=== PATIENT | male | born 1980 | race Caucasian/White ===

== ENCOUNTER 2017-11-17 10:00 | Emergency (ER) | payer MEDICAID ==
--- NOTE | 2017-11-17 10:59 | UC ---
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 He now has pain and swelling on the ulnar side of his right hand. - History Of Current Complaint Chief Complaint: UCUpperExtremity Stated Complaint: HAND INJURY Time Seen by Provider: 11/17/17 10:25 Hx Obtained From: Patient Onset/Duration: Sudden Onset, Lasting Days, Still Present Severity Initially: Moderate Severity Currently: Moderate Pain Intensity: 4 Pain Scale Used: 0-10 Numeric Character Of Pain: Sharp Aggravating Factor(s): Movement Alleviating Factor(s): Rest, Ice Associated Signs And Symptoms: Positive: Swelling. Negative: Numbness/Tingling Related History: Dominant Hand Right - Allergies/Home Medications Allergies/Adverse Reactions: Allergies Allergy/AdvReac Type Severity Reaction Status Date / Time cat dander Allergy Intermediate Congestion Verified 11/17/17 10:17 mold Allergy Congestion Verified 11/17/17 10:17 dust Allergy Congestion Uncoded 11/17/17 10:17 PMH/Surg Hx/FS Hx/Imm Hx Psychological History: Schizophrenia - Surgical History Surgical History: None Surgery Procedure, Year, and Place: denies - Family History Known Family History: Positive: Hypertension - Social History Alcohol Use: Occasionally Substance Use Type: Marijuana Substance Use Comment - Amount & Last Used: "I smoke as much as possible" Smoking Status (MU): Heavy Every Day Tobacco Smoker Type: Cigarettes Length of Time of Smoking/Using Tobacco: 27 yrs Have You Smoked in the Last Year: Yes - Immunization History Most Recent Influenza Vaccination: unsure Most Recent Tetanus Shot: unsure Most Recent Pneumonia Vaccination: unsure Review of Systems Constitutional: Negative Skin: Negative Respiratory: Negative Cardiovascular: Negative Gastrointestinal: Negative Musculoskeletal: Arthralgia, Decreased ROM, Edema All Other Systems Reviewed And Are Negative: Yes Physical Exam Triage Information Reviewed: Yes Appearance: Well-Appearing, No Pain Distress, Well-Nourished Vital Signs: Initial Vital Signs Temp 98.6 F 11/17/17 10:08 Pulse 79 11/17/17 10:08 Resp 18 11/17/17 10:08 BP 151/88 11/17/17 10:08 Pulse Ox 97 11/17/17 10:08 Vital Signs Reviewed: Yes Eyes: Positive: Conjunctiva Clear ENT: Positive: Hearing grossly normal Neck: Positive: Supple Respiratory: Positive: No respiratory distress, No accessory muscle use Cardiovascular: Positive: Pulses Normal Abdomen Description: Positive: Soft Musculoskeletal: Positive: ROM Limited @ - RIGHT HAND FLEXION AND EXTENSION, Edema @ - RIGHT HAND, Other: - TTP RIGHT HAND 5TH METACARPAL Neurological: Positive: Alert Psychological: Positive: Age Appropriate Behavior Skin: Negative: rashes Diagnostics - Radiology RIGHT HAND XRAY Xray Interpretation: Positive (See Comments) - OBLIQUE, COMMINUTED, DISPLACED, INTRA-ARTICULAR FRACTURE BASE OF THE FIFTH METACARPAL. Radiology Interpretation Completed By: Radiologist Hand/Wrist Course/Dx - Course Course Of Treatment: I spoke with Dr. Torres from orthopedics today. Sugar tong splint and sling applied. Ibuprofen for discomfort. Hydrocodone/APAP for breakthrough pain. Patient advised that hydrocodone in conjunction with haloperidol can increase risk for [employer] depression and respiratory depression. Patient has taken hydrocodone in the past and tolerated it well. He will call ortho today and set up an appointment for evaluation next week. - Differential Dx/Diagnosis Provider Diagnoses: OBLIQUE, COMMINUTED, DISPLACED, INTRA-ARTICULAR FRACTURE BASE OF THE RIGHT FIFTH. METACARPAL. - Physician Notifications Discussed Patient Care With: Cosme Torres Time Discussed With Above Provider: 11:30 Instructed by Provider To: Have Pt Call For Appt. Discharge - Sign-Out/Discharge Documenting (check all that apply): Discharge - Discharge Plan Condition: Stable Disposition: HOME Prescriptions: HYDROcodone/ACETAMIN 5-325 MG* [[place] 5-325 TAB*] 1 tab PO Q6H PRN #15 tab MDD 4 PRN Reason: Pain Patient Education Materials: Hand Fracture (ED) Referrals: Cosme Torres MD [Medical Doctor] - 5 Days Tim Avendaño MD [Primary Care Provider] - If Needed Additional Instructions: Your x-ray today showed an oblique, comminuted, displaced, intra-articular fracture of the base of the fifth metacarpal. Call ortho today for a follow-up appointment next week. Keep the splint on until seen by Ortho. Keep your arm elevated. Ice it several times daily. Ibuprofen as needed for discomfort. Use the hydrocodone sparingly for breakthrough pain. Be aware that narcotics in conjunction with haloperidol can increase your risk of sedation and respiratory compromise. - Billing Disposition and Condition Condition: STABLE Disposition: HOME
--- NOTE | 2017-11-17 11:02 | RAD ---
INDICATION: Right hand injury. TECHNIQUE: 4 views of the right hand were obtained. FINDINGS: There is soft tissue swelling present adjacent to the posterior medial aspect of the fourth and fifth metacarpal bones. There is an oblique comminuted intra-articular fracture at the base of the fifth metacarpal. There is slight distraction of fracture fragments. IMPRESSION: OBLIQUE, COMMINUTED, DISPLACED, INTRA-ARTICULAR FRACTURE BASE OF THE FIFTH METACARPAL.
[2017-11-17] MEDS ORDERED: Ibuprofen TAB* 600 MG PO ONE (11:11)
[2017-11-17 13:22] VITALS: BP 146/88
== END 2017-11-17 12:55 | disposition home or self-care (01) ==
LOC: UCEAST 10:00
DX: S62.306A Unspecified fracture of fifth metacarpal bone, right hand, initial encounter for closed fracture (principal); W22.09XA Striking against other stationary object, initial encounter; Y93.H3 Activity, building and construction; Y92.9 Unspecified place or not applicable; Y99.0 Civilian activity done for income or pay; F20.9 Schizophrenia, unspecified; F17.210 Nicotine dependence, cigarettes, uncomplicated
CPT/HCPCS: 99213; A9270-GY; G0463

== ENCOUNTER 2020-01-09 00:07 | Inpatient (IN) ==
[2020-01-09 00:57] LABS: ABS Basophils 0.1 10^3/ul (0-0.2); ABS Eosinophils 0.2 10^3/ul (0-0.6); ABS Lymphocytes 2.3 10^3/ul (1.0-4.8); ABS Monocytes 0.7 10^3/ul (0-0.8); Eosinophil % 1.7 %; Hematocrit 45 % (42-52); Hemoglobin 16.5 g/dL (14.0-18.0); Lymphocyte % 21.1 %; Mean Corpuscular HGB Conc 36 g/dL (31-36); Mean Corpuscular Hemoglobin 34 pg (27-31); Mean Corpuscular Volume 93 fL (80-94); Mean Platelet Volume 8.8 fL (7.4-10.4); Platelet Count 146 10^3/uL (150-450); Red Blood Count 4.86 10^6 /uL (4.18-5.48); Red Cell Distribution Width 14 % (10-15); White Blood Count 10.8 10^3/uL (3.5-10.8)
[2020-01-09 00:59] LABS: Urine Appearance Cloudy; Urine Bilirubin Negative (Negative); Urine Blood Negative (Negative); Urine Color Yellow; Urine Glucose Negative (Negative); Urine Ketones Negative (Negative); Urine Nitrite Negative (Negative); Urine Protein Negative (Negative); Urine Specific Gravity 1.019 (1.010-1.030); Urine Urobilinogen Negative (Negative)
[2020-01-09 01:12] LABS: ALT 13 U/L (7-52); Albumin 4.1 g/dL (3.2-5.2); Albumin/Globulin Ratio 1.4 (1-3); Alkaline Phosphatase 51 U/L (34-104); BUN/Creatinine Ratio 16.3 (8-20); Blood Urea Nitrogen 16 mg/dL (6-24); CO2 Carbon Dioxide 28 mmol/L (22-32); Calcium 9.5 mg/dL (8.6-10.3); Chloride 102 mmol/L (101-111); EGFR African American 103.6 (>60); EGFR Non-African American 85.6 (>60); Glucose 164 mg/dL (70-100); Sodium 137 mmol/L (135-145); Total Protein 7.1 g/dL (6.4-8.9)
[2020-01-09 01:14] LABS: Urine Benzodiazepine Screen None Detected (None Detect); Urine Opiates Screen None Detected (None Detect)
[2020-01-09 01:19] LABS: Acetaminophen < 15 mcg/mL; Alcohol, S < 10 mg/dL (<10); Salicylate < 2.50 mg/dL (<30)
[2020-01-09 01:33] LABS: TSH (Thyroid Stimulating Horm) 0.77 mcIU/mL (0.34-5.60)
[2020-01-09 01:45] LABS: Anion Gap 7 mmol/L (2-11); Potassium 4.1 mmol/L (3.5-5.0)
[2020-01-09 01:53] LABS: AST 16 U/L (13-39)
[2020-01-09] MEDS ORDERED: Nicotine GUM 2MG FRUIT FLAVOR PO ONE (03:08)
[2020-01-09] MEDS ORDERED: Al Hydrox/Mg Hydrox/Simet LIQ 30 ML UDC PO PRN (03:28)
[2020-01-09] MEDS: Nicotine GUM 2MG FRUIT FLAVOR PO PRN ×4 (06:16→11:54)
[2020-01-09] MEDS: Vitamin THERAPEUTIC TAB PO SCH (08:34)
[2020-01-09] MEDS: Nicotine PATCH 21 MG/24 HR PATCH TRANSDERM SCH ×2 (08:35→12:13)
[2020-01-09] MEDS ORDERED: AMOXICILLIN 250 MG PO ONE (10:51)
[2020-01-09] MEDS: LORazepam 1 mg TAB (*) PO PRN (13:27)
[2020-01-09] MEDS: Nicotine GUM 4MG FRUIT FLAVOR PO PRN (16:33)
[2020-01-10] MEDS ORDERED: Haloperidol 5 mg/ml SDV IV/IM 5 MG/ML AMP IM ONE (07:40)
[2020-01-10] MEDS ORDERED: Lorazepam PYXIS KEY PRN (07:41)
[2020-01-10] MEDS ORDERED: LORazepam 2 mg VIAL 1 ml IM ONE (07:41)
[2020-01-10] MEDS ORDERED: LORazepam 2 mg VIAL 1 ml ONE (07:41)
[2020-01-10] MEDS ORDERED: Haloperidol 5 mg/ml SDV IV/IM 5 MG/ML AMP ONE (07:41)
[2020-01-10] MEDS: Nicotine GUM 4MG FRUIT FLAVOR PO PRN ×4 (07:50→21:41)
[2020-01-10] MEDS: LORazepam 1 mg TAB (*) PO PRN ×2 (07:50→13:37)
[2020-01-10] MEDS: Vitamin THERAPEUTIC TAB PO SCH (08:55)
[2020-01-10] MEDS: Nicotine PATCH 21 MG/24 HR PATCH TRANSDERM SCH (08:56)
[2020-01-10] MEDS ORDERED: Benzocaine/Menthol LOZ MT PRN (11:18)
[2020-01-10] MEDS ORDERED: chlorproMAZINE 25 MG/ML 2 ML (50 MG) IM ONE (13:26)
[2020-01-10] MEDS ORDERED: chlorproMAZINE 25 MG/ML 2 ML (50 MG) ONE (13:26)
[2020-01-11] MEDS: Nicotine GUM 4MG FRUIT FLAVOR PO PRN ×3 (01:30→18:30)
[2020-01-11] MEDS: Nicotine PATCH 21 MG/24 HR PATCH TRANSDERM SCH (08:28)
[2020-01-11] MEDS: Vitamin THERAPEUTIC TAB PO SCH (08:29)
[2020-01-11] MEDS: LORazepam 1 mg TAB (*) PO PRN (18:29)
[2020-01-11] MEDS: OLANzapine 5 mg TAB*ODT PO PRN (18:30)
[2020-01-11] MEDS ORDERED: diPHENhydraMINE IV 50 MG/ML 1 ml VIAL (BENADRYL) IM ONE (19:00)
[2020-01-12] MEDS: Nicotine PATCH 21 MG/24 HR PATCH TRANSDERM SCH (07:41)
[2020-01-12] MEDS: Vitamin THERAPEUTIC TAB PO SCH (07:41)
[2020-01-12 07:55] LABS: HDL Cholesterol 58.3 mg/dL
[2020-01-12] MEDS: Nicotine GUM 4MG FRUIT FLAVOR PO PRN (09:20)
[2020-01-12] MEDS ORDERED: LORazepam 1 mg TAB (*) PO PRN (12:30)
[2020-01-13] MEDS: Nicotine GUM 4MG FRUIT FLAVOR PO PRN ×3 (05:26→20:40)
[2020-01-13] MEDS: Vitamin THERAPEUTIC TAB PO SCH (08:27)
[2020-01-13] MEDS: Nicotine PATCH 21 MG/24 HR PATCH TRANSDERM SCH (08:27)
[2020-01-13] MEDS: OLANzapine 5 mg TAB*ODT PO PRN (16:29)
[2020-01-14] MEDS: Nicotine GUM 4MG FRUIT FLAVOR PO PRN ×2 (07:09→19:41)
[2020-01-14] MEDS: Vitamin THERAPEUTIC TAB PO SCH (08:21)
[2020-01-14] MEDS: Nicotine PATCH 21 MG/24 HR PATCH TRANSDERM SCH (08:22)
[2020-01-14] MEDS: LORazepam 1 mg TAB (*) PO PRN ×2 (09:00→19:40)
[2020-01-14] MEDS ORDERED: LORazepam 1 mg TAB (*) PO ONE (09:01)
[2020-01-15] MEDS: CMCS:Saliva Substitute (NF) 1 SPRAY BTL MT PRN (05:31)
[2020-01-15] MEDS: Nicotine PATCH 21 MG/24 HR PATCH TRANSDERM SCH (07:46)
[2020-01-15] MEDS: Nicotine GUM 4MG FRUIT FLAVOR PO PRN ×3 (07:46→21:27)
[2020-01-15] MEDS: Vitamin THERAPEUTIC TAB PO SCH (08:34)
[2020-01-15] MEDS: CMCS: OMEGA-3 FATTY ACID 1000 mg(NF) PO SCH ×2 (15:25→21:25)
[2020-01-15] MEDS: LORazepam 1 mg TAB (*) PO PRN (19:17)
[2020-01-16] MEDS: Vitamin THERAPEUTIC TAB PO SCH (07:37)
[2020-01-16] MEDS: Nicotine PATCH 21 MG/24 HR PATCH TRANSDERM SCH (07:39)
[2020-01-16] MEDS: Nicotine GUM 4MG FRUIT FLAVOR PO PRN ×3 (07:40→20:22)
[2020-01-16] MEDS: CMCS: OMEGA-3 FATTY ACID 1000 mg(NF) PO SCH ×2 (10:21→20:21)
[2020-01-17] MEDS: Nicotine GUM 4MG FRUIT FLAVOR PO PRN ×3 (07:32→15:52)
[2020-01-17] MEDS: Nicotine PATCH 21 MG/24 HR PATCH TRANSDERM SCH (08:30)
[2020-01-17] MEDS: CMCS: OMEGA-3 FATTY ACID 1000 mg(NF) PO SCH ×2 (09:00→22:57)
[2020-01-17] MEDS: Vitamin THERAPEUTIC TAB PO SCH (09:00)
[2020-01-17] MEDS: CMCS:Saliva Substitute (NF) 1 SPRAY BTL MT PRN (14:28)
[2020-01-18] MEDS: Nicotine GUM 4MG FRUIT FLAVOR PO PRN ×3 (08:14→17:36)
[2020-01-18] MEDS: Vitamin THERAPEUTIC TAB PO SCH (08:14)
[2020-01-18] MEDS: Nicotine PATCH 21 MG/24 HR PATCH TRANSDERM SCH (08:14)
[2020-01-18] MEDS: CMCS: OMEGA-3 FATTY ACID 1000 mg(NF) PO SCH ×2 (08:16→22:22)
[2020-01-19] MEDS: Nicotine PATCH 21 MG/24 HR PATCH TRANSDERM SCH (08:21)
[2020-01-19] MEDS: CMCS: OMEGA-3 FATTY ACID 1000 mg(NF) PO SCH ×2 (08:21→21:21)
[2020-01-19] MEDS: Vitamin THERAPEUTIC TAB PO SCH (08:24)
[2020-01-19] MEDS: Nicotine GUM 4MG FRUIT FLAVOR PO PRN (14:16)
[2020-01-19] MEDS: LORazepam 1 mg TAB (*) PO PRN (14:36)
[2020-01-20] MEDS: Nicotine GUM 4MG FRUIT FLAVOR PO PRN ×6 (05:59→17:58)
[2020-01-20] MEDS: Nicotine PATCH 21 MG/24 HR PATCH TRANSDERM SCH (07:38)
[2020-01-20] MEDS: Vitamin THERAPEUTIC TAB PO SCH (07:39)
[2020-01-20] MEDS: CMCS: OMEGA-3 FATTY ACID 1000 mg(NF) PO SCH ×2 (07:40→22:21)
[2020-01-21] MEDS: Nicotine PATCH 21 MG/24 HR PATCH TRANSDERM SCH (08:12)
[2020-01-21] MEDS: Vitamin THERAPEUTIC TAB PO SCH (08:14)
[2020-01-21] MEDS: CMCS: OMEGA-3 FATTY ACID 1000 mg(NF) PO SCH ×2 (08:15→21:14)
[2020-01-21] MEDS: Nicotine GUM 4MG FRUIT FLAVOR PO PRN ×5 (08:50→18:18)
[2020-01-22] MEDS: Nicotine GUM 4MG FRUIT FLAVOR PO PRN ×3 (06:50→13:05)
[2020-01-22] MEDS: Vitamin THERAPEUTIC TAB PO SCH (08:36)
[2020-01-22] MEDS: Nicotine PATCH 21 MG/24 HR PATCH TRANSDERM SCH (08:36)
[2020-01-22] MEDS: CMCS: OMEGA-3 FATTY ACID 1000 mg(NF) PO SCH ×2 (08:37→23:48)
[2020-01-22] MEDS: LORazepam 1 mg TAB (*) PO PRN (13:04)
[2020-01-23] MEDS: Nicotine PATCH 21 MG/24 HR PATCH TRANSDERM SCH (08:20)
[2020-01-23] MEDS: Vitamin THERAPEUTIC TAB PO SCH (08:22)
[2020-01-23] MEDS: Nicotine GUM 4MG FRUIT FLAVOR PO PRN ×3 (08:23→17:40)
[2020-01-23] MEDS: CMCS: OMEGA-3 FATTY ACID 1000 mg(NF) PO SCH ×2 (08:23→20:38)
[2020-01-23] MEDS: LORazepam 1 mg TAB (*) PO PRN (12:24)
[2020-01-24] MEDS: Nicotine GUM 4MG FRUIT FLAVOR PO PRN ×4 (05:59→17:45)
[2020-01-24] MEDS: CMCS: OMEGA-3 FATTY ACID 1000 mg(NF) PO SCH ×2 (08:08→20:03)
[2020-01-24] MEDS: Vitamin THERAPEUTIC TAB PO SCH (08:08)
[2020-01-24] MEDS: Nicotine PATCH 21 MG/24 HR PATCH TRANSDERM SCH (08:08)
[2020-01-25] MEDS: Nicotine GUM 4MG FRUIT FLAVOR PO PRN ×6 (05:26→20:08)
[2020-01-25] MEDS: Nicotine PATCH 21 MG/24 HR PATCH TRANSDERM SCH (07:36)
[2020-01-25] MEDS: Vitamin THERAPEUTIC TAB PO SCH (07:40)
[2020-01-25] MEDS: CMCS: OMEGA-3 FATTY ACID 1000 mg(NF) PO SCH ×2 (07:40→20:09)
[2020-01-26] MEDS: Nicotine GUM 4MG FRUIT FLAVOR PO PRN ×6 (06:30→20:53)
[2020-01-26] MEDS: Nicotine PATCH 21 MG/24 HR PATCH TRANSDERM SCH (08:25)
[2020-01-26] MEDS: Vitamin THERAPEUTIC TAB PO SCH (08:25)
[2020-01-26] MEDS: CMCS: OMEGA-3 FATTY ACID 1000 mg(NF) PO SCH ×2 (08:26→20:53)
[2020-01-26] MEDS: LORazepam 1 mg TAB (*) PO PRN (19:20)
[2020-01-27] MEDS: Nicotine GUM 4MG FRUIT FLAVOR PO PRN ×3 (06:53→20:48)
[2020-01-27] MEDS: Vitamin THERAPEUTIC TAB PO SCH (08:28)
[2020-01-27] MEDS: CMCS: OMEGA-3 FATTY ACID 1000 mg(NF) PO SCH ×2 (08:29→20:49)
[2020-01-27] MEDS: Nicotine PATCH 21 MG/24 HR PATCH TRANSDERM SCH (08:31)
[2020-01-27] MEDS: LORazepam 1 mg TAB (*) PO PRN (10:51)
[2020-01-28] MEDS: Nicotine GUM 4MG FRUIT FLAVOR PO PRN ×4 (04:48→20:22)
[2020-01-28] MEDS: Nicotine PATCH 21 MG/24 HR PATCH TRANSDERM SCH (07:35)
[2020-01-28] MEDS: CMCS: OMEGA-3 FATTY ACID 1000 mg(NF) PO SCH ×2 (08:33→20:21)
[2020-01-28] MEDS: Vitamin THERAPEUTIC TAB PO SCH (08:33)
[2020-01-28] MEDS: LORazepam 1 mg TAB (*) PO PRN ×2 (13:06→20:56)
[2020-01-29] MEDS: Nicotine GUM 4MG FRUIT FLAVOR PO PRN ×4 (06:18→20:07)
[2020-01-29] MEDS: CMCS: OMEGA-3 FATTY ACID 1000 mg(NF) PO SCH ×2 (08:44→20:08)
[2020-01-29] MEDS: Nicotine PATCH 21 MG/24 HR PATCH TRANSDERM SCH (08:45)
[2020-01-29] MEDS: Vitamin THERAPEUTIC TAB PO SCH (08:45)
[2020-01-29] MEDS ORDERED: LORazepam 1 mg TAB (*) PO PRN (11:21)
[2020-01-29] MEDS ORDERED: LORazepam 1 mg TAB (*) ONE (11:25)
[2020-01-29] MEDS ORDERED: Polyethylene Glycol 3350 17 GM PACKET PO PRN (11:29)
[2020-01-29 13:49] LABS: ABS Basophils 0.1 10^3/ul (0-0.2); ABS Eosinophils 0.2 10^3/ul (0-0.6); ABS Lymphocytes 2.1 10^3/ul (1.0-4.8); ABS Monocytes 0.7 10^3/ul (0-0.8); Eosinophil % 2.4 %; Hematocrit 40 % (42-52); Hemoglobin 14.2 g/dL (14.0-18.0); Lymphocyte % 21.4 %; Mean Corpuscular HGB Conc 35 g/dL (31-36); Mean Corpuscular Hemoglobin 33 pg (27-31); Mean Corpuscular Volume 93 fL (80-94); Mean Platelet Volume 8.8 fL (7.4-10.4); Nucleated Red Blood Cells % 0.2; Platelet Count 171 10^3/uL (150-450); Red Blood Count 4.34 10^6 /uL (4.18-5.48); Red Cell Distribution Width 14 % (10-15); White Blood Count 9.7 10^3/uL (3.5-10.8)
[2020-01-30] MEDS: Nicotine GUM 4MG FRUIT FLAVOR PO PRN ×2 (06:10→08:23)
[2020-01-30] MEDS: Vitamin THERAPEUTIC TAB PO SCH (08:23)
[2020-01-30] MEDS: CMCS: OMEGA-3 FATTY ACID 1000 mg(NF) PO SCH (08:23)
[2020-01-30] MEDS: Nicotine PATCH 21 MG/24 HR PATCH TRANSDERM SCH (08:24)
[2020-01-30 09:54] VITALS: BP 142/85
== END 2020-01-30 11:45 | DRG 750 ==
LOC: ED 00:07 → BSU 02:53
PROVIDERS: ADMIT Psychiatry & Neurology Psychiatry; ATTEND Psychiatry & Neurology Psychiatry

== ENCOUNTER 2021-02-11 12:31 | Inpatient (IN) ==
[2021-02-11 13:07] LABS: ABS Eosinophils 0.2 10^3/ul (0-0.6); ABS Lymphocytes 1.4 10^3/ul (1.0-4.8); ABS Monocytes 0.8 10^3/ul (0-0.8); Eosinophil % 2.1 %; Hematocrit 44 % (42-52); Hemoglobin 15.3 g/dL (14.0-18.0); Lymphocyte % 14.4 %; Mean Corpuscular HGB Conc 35 g/dL (31-36); Mean Corpuscular Hemoglobin 32 pg (27-31); Mean Corpuscular Volume 93 fL (80-94); Mean Platelet Volume 9.2 fL (7.4-10.4); Platelet Count 168 10^3/uL (150-450); Red Blood Count 4.76 10^6 /uL (4.18-5.48); Red Cell Distribution Width 14 % (10-15); White Blood Count 9.4 10^3/uL (3.5-10.8)
[2021-02-11 13:24] LABS: Urine Appearance Clear; Urine Bilirubin Negative (Negative); Urine Blood Negative (Negative); Urine Color Yellow; Urine Glucose Negative (Negative); Urine Ketones Negative (Negative); Urine Nitrite Negative (Negative); Urine Protein Negative (Negative); Urine Specific Gravity 1.015 (1.002-1.030); Urine Urobilinogen Negative (Negative)
[2021-02-11 13:48] LABS: ALT 14 U/L (7-52); AST 19 U/L (13-39); Albumin 4.3 g/dL (3.2-5.2); Albumin/Globulin Ratio 1.3 (1-3); Alkaline Phosphatase 59 U/L (35-149); Anion Gap 8 mmol/L (2-11); Blood Urea Nitrogen 15 mg/dL (6-24); CO2 Carbon Dioxide 26 mmol/L (22-32); Calcium 9.2 mg/dL (8.6-10.3); Chloride 102 mmol/L (101-111); EGFR African American 128.4 (>60); EGFR Non-African American 106.1 (>60); Globulin 3.3 g/dL (2-4); Glucose 121 mg/dL (70-100); Sodium 136 mmol/L (135-145); Total Protein 7.6 g/dL (6.4-8.9)
[2021-02-11 13:53] LABS: Urine Benzodiazepine Screen None Detected (None Detect); Urine Cannabinoids Screen Presumptive Positive (None Detect); Urine Opiates Screen None Detected (None Detect)
[2021-02-11 14:00] LABS: Acetaminophen < 15 mcg/mL; Alcohol, S < 10 mg/dL (<10); Salicylate < 2.50 mg/dL (<30)
[2021-02-11 14:06] LABS: TSH Ultra Thyroid Stim Horm 0.48 mcIU/mL (0.34-5.60)
[2021-02-11] MEDS ORDERED: guaiFENesin 100 mg/5 ml LIQ unit dose cup PO ONE (15:46)
[2021-02-11] MEDS ORDERED: Bacitracin OINTMENT TUBE TOPICAL ONE (16:00)
[2021-02-11] MEDS ORDERED: Bacitracin OINTMENT TUBE ONE (16:15)
[2021-02-11] MEDS ORDERED: Nicotine GUM 4MG FRUIT FLAVOR PO ONE (18:11)
[2021-02-11] MEDS ORDERED: Albuterol HFA INHALER 8 gm MDI INH PRN (19:09)
[2021-02-11] MEDS: Mometasone/Formoter 100/5 MDI INH SCH (20:00)
[2021-02-11] MEDS: Benzocaine/Menthol LOZ MT PRN ×2 (22:05→23:16)
[2021-02-12] MEDS: Nicotine GUM 4MG FRUIT FLAVOR PO PRN ×6 (04:03→21:04)
[2021-02-12 08:49] LABS: HDL Cholesterol 49.1 mg/dL
[2021-02-12] MEDS: Benzocaine/Menthol LOZ MT PRN ×2 (08:50→20:00)
[2021-02-12] MEDS: Vitamin THERAPEUTIC TAB PO SCH (09:39)
[2021-02-12] MEDS: Nicotine PATCH 21 MG/24 HR PATCH TRANSDERM SCH (09:39)
[2021-02-12] MEDS: Mometasone/Formoter 100/5 MDI INH SCH ×2 (09:40→19:57)
[2021-02-12] MEDS: Nicotine Lozenge mini 2 MG LOZNG.MINI MT PRN ×4 (10:43→19:59)
[2021-02-13] MEDS: Nicotine GUM 4MG FRUIT FLAVOR PO PRN ×4 (04:45→16:10)
[2021-02-13] MEDS: Nicotine Lozenge mini 2 MG LOZNG.MINI MT PRN ×3 (04:46→10:20)
[2021-02-13] MEDS: Nicotine PATCH 21 MG/24 HR PATCH TRANSDERM SCH (07:54)
[2021-02-13] MEDS: Mometasone/Formoter 100/5 MDI INH SCH ×2 (07:56→22:09)
[2021-02-13] MEDS: Vitamin THERAPEUTIC TAB PO SCH (07:56)
[2021-02-13] MEDS: Benzocaine/Menthol LOZ MT PRN ×2 (10:20→12:57)
[2021-02-13] MEDS ORDERED: Haloperidol 5 mg/ml SDV IV/IM 5 MG/ML AMP ONE (16:01)
[2021-02-13] MEDS ORDERED: diPHENhydraMINE IV 50 MG/ML 1 ml VIAL (BENADRYL) ONE (16:01)
[2021-02-13] MEDS ORDERED: LORazepam 2 mg VIAL 1 ml ONE (16:01)
[2021-02-14] MEDS: Nicotine Lozenge mini 2 MG LOZNG.MINI MT PRN ×6 (05:01→21:16)
[2021-02-14] MEDS: Nicotine GUM 4MG FRUIT FLAVOR PO PRN ×4 (07:16→21:16)
[2021-02-14] MEDS: Nicotine PATCH 21 MG/24 HR PATCH TRANSDERM SCH (07:16)
[2021-02-14] MEDS: Mometasone/Formoter 100/5 MDI INH SCH ×2 (07:18→21:16)
[2021-02-14] MEDS: Vitamin THERAPEUTIC TAB PO SCH (07:19)
[2021-02-15] MEDS: Nicotine GUM 4MG FRUIT FLAVOR PO PRN ×6 (04:31→20:56)
[2021-02-15] MEDS: Nicotine Lozenge mini 2 MG LOZNG.MINI MT PRN ×4 (04:31→14:25)
[2021-02-15] MEDS: Nicotine PATCH 21 MG/24 HR PATCH TRANSDERM SCH (07:20)
[2021-02-15] MEDS: Vitamin THERAPEUTIC TAB PO SCH (08:43)
[2021-02-15] MEDS: Mometasone/Formoter 100/5 MDI INH SCH ×2 (11:29→20:55)
[2021-02-15] MEDS: Al Hydrox/Mg Hydrox/Simet LIQ 30 ML UDC PO PRN (17:52)
[2021-02-16] MEDS: Al Hydrox/Mg Hydrox/Simet LIQ 30 ML UDC PO PRN (02:27)
[2021-02-16] MEDS: Nicotine Lozenge mini 2 MG LOZNG.MINI MT PRN ×3 (02:28→16:19)
[2021-02-16] MEDS: Nicotine GUM 4MG FRUIT FLAVOR PO PRN ×4 (05:12→20:28)
[2021-02-16] MEDS: Nicotine PATCH 21 MG/24 HR PATCH TRANSDERM SCH (09:02)
[2021-02-16] MEDS: Vitamin THERAPEUTIC TAB PO SCH (09:02)
[2021-02-16] MEDS: Mometasone/Formoter 100/5 MDI INH SCH ×2 (09:04→20:30)
[2021-02-17] MEDS: Nicotine GUM 4MG FRUIT FLAVOR PO PRN ×2 (03:48→10:18)
[2021-02-17] MEDS: Nicotine Lozenge mini 2 MG LOZNG.MINI MT PRN ×2 (06:37→12:28)
[2021-02-17 07:58] VITALS: BP 135/79
[2021-02-17] MEDS: Vitamin THERAPEUTIC TAB PO SCH (08:25)
[2021-02-17] MEDS: Nicotine PATCH 21 MG/24 HR PATCH TRANSDERM SCH (08:25)
[2021-02-17] MEDS: Mometasone/Formoter 100/5 MDI INH SCH (08:27)
== END 2021-02-17 03:15 | disposition home or self-care (01) | DRG 750 ==
LOC: ED 12:31 → BSU 18:56
PROVIDERS: ADMIT Psychiatry & Neurology Psychiatry; ATTEND Psychiatry & Neurology Psychiatry